=== PATIENT | female | born 1995 | race Caucasian/White ===

== ENCOUNTER 2020-10-24 07:22 | Emergency (ER) | payer MEDICAID, SELFPAY ==
[2020-10-24 07:22] VITALS: BP 118/66; PULSE 92; RESP 16; TEMP 36.6; O2SAT 99; BMI 27.4
--- NOTE | 2020-10-24 07:43 | ED.DCSUM_ITS ---
- ER Visit Summary Date of Service: 10/24/20 Chief Complaint: Head injury History of Present Illness: The patient is a 24 F who presents with a head injury that occurred 2 days ago. Patient states she hit her head on her car. Patient states she thinks she blacked out for less than 1 second. Patient admit s to a frontal headache. Patient states she has been having some general weakness and has been dropping things at work. Patient denies any numbness or tingling. Patient states she has been more forgetful over the last 2 days. Patient states her headache is over the frontal area. Patient describes it as dull and throbbing. Patient admits to nausea but denies any vomiting. Physical Examination: Vital signs are stable. Patient is afebrile. Patient is in no acute distress. There is tenderness and a small hematoma over the right frontal area. There is no bony crepitance or step-off. Pupils are equal, round, and reactive to light bilaterally. Extraocular muscles are intact. Tympanic membranes are clear. There is no hemotympanum noted. Oral mucosa is pink and moist. Neck is supple. Trachea is midline. There is no JVD noted. Heart was regular rate and rhythm. Lungs are clear and equal bilaterally. Abdomen is soft. Bowel sounds are normal. There is no tenderness. There is no rebound or guarding noted. Skin is warm dry. Cranial nerves II through XII are intact. Strength is 5/5 bilateral in the upper and lower extremities. There are no sensory deficits noted. Deep tendon reflexes are 2+/4 bilaterally in the upper and lower extremities. Extremities are intact. There is no calf tenderness or edema. Emergency Department Course and Treatment: Since the patient has normal neurologic exam and it has been over 48 hours since her injury, I do not feel CT scan is necessary at this time. Patient was advised that this is most likely from a concussion. Patient was given concussion instructions. Patient was instructed to get plenty of rest and drink plenty of fluids. Patient was instructed to take Tylenol as needed for pain. Patient was instructed to avoid electronics such as television, phone, and video games. Patient was instructed to follow-up with her primary care physician in 5 to 7 days. Patient understood and was agreeable with the plan. All questions were answered. Disposition: Discharge home Impression: 1. Concussion This note was generated with Dragon dictation software. It may contain incorrect words, spelling, and punctuation that were not noted in review of the chart prior to signing ED Disposition - Plan for ED Patient: Disposition: Home or Assisted Living Diagnosis: Concussion Instructions: ED Concussion Referrals: Care Physician,No Primary [Primary Care Provider] - 5-7 Days
== END 2020-10-24 08:17 | disposition home or self-care (01) ==
LOC: ED 08:11
PROVIDERS: Emergency Provider Emergency Medicine; PCP Nurse Practitioner Primary Care
DX: S06.0X9A Concussion with loss of consciousness of unspecified duration, initial encounter (principal); W22.8XXA Striking against or struck by other objects, initial encounter; Y93.9 Activity, unspecified; Y92.89 Other specified places as the place of occurrence of the external cause; Y99.9 Unspecified external cause status; F17.210 Nicotine dependence, cigarettes, uncomplicated
CPT/HCPCS: 99282